=== PATIENT | male | born 1975 | race Caucasian/White ===

== ENCOUNTER → 2023-12-21 12:00 | Outpatient (REF) | payer SELFPAY | LOC: HWRAD 12:00 | PROVIDERS: ATTENDING PHYSICIAN Nurse Practitioner Family | DX: E78.5 Hyperlipidemia, unspecified (principal) | CPT/HCPCS: 75571 ==

== ENCOUNTER 2024-07-05 06:16 | Day surgery (SDC) | payer BC, SELFPAY | END 2024-07-05 14:12 | disposition home or self-care (01) | LOC: GI 06:16 | PROVIDERS: ATTENDING PHYSICIAN Internal Medicine | DX: R10.12 Left upper quadrant pain (principal); R10.11 Right upper quadrant pain; K44.9 Diaphragmatic hernia without obstruction or gangrene; K31.89 Other diseases of stomach and duodenum; Q40.2 Other specified congenital malformations of stomach; R10.13 Epigastric pain; K52.9 Noninfective gastroenteritis and colitis, unspecified | CPT/HCPCS: 43239; 88305; 88342 ==